=== PATIENT | male | born 2005 | race Caucasian/White ===

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

== ENCOUNTER 2023-08-09 20:04 | Emergency (ER) | payer OTHER ==
[2023-08-09 20:29] VITALS: BP 118/79; PULSE 68
[2023-08-09] MEDS ORDERED: Tetracaine HCl/PF 0.5% 4 ML Bottle EYELF ONE (20:36)
== END 2023-08-09 21:10 | disposition home or self-care (01) ==
LOC: JP.ED 20:04
DX: H57.89 Other specified disorders of eye and adnexa (principal); J45.909 Unspecified asthma, uncomplicated
CPT/HCPCS: 99282; 99283